=== PATIENT | male | born 1975 | race Caucasian/White ===

== ENCOUNTER 2017-05-13 22:02 | Emergency (ER) | payer OTHER ==
[~2017-05-13] VITALS: Ht 175.3 cm; Wt 77.1 kg
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
[2017-05-13 23:00] VITALS: BP 104/64
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
== END 2017-05-13 23:26 | disposition home or self-care (01) ==
LOC: EEVIPCON 22:02 → ER 22:02
DX: R51 Headache (principal); R42 Dizziness and giddiness; R41.82 Altered mental status, unspecified
CPT/HCPCS: 70450; 72125; 99284

== ENCOUNTER 2020-01-30 16:48 | Emergency (ER) | payer SELFPAY ==
[2020-01-30] MEDS ORDERED: HYDR30CR74 TP (19:43)
[2020-01-30] MEDS ORDERED: METH4TAB2 PO (19:43)
--- NOTE | 2020-01-30 19:44 | PHYS DOC ---
Past Medical History Past Medical History: Unknown Additional Past Medical Histor: DENIES Past Surgical History: Other Additional Past Surgical Histo: DENIES Smoking Status: Former Smoker Alcohol Use: Occasionally Drug Use: Marijuana General Adult EDM: Chief Complaint: SKIN PROBLEM HPI: HPI: Patient is a 44 year old male who presents with states Tuesday into Tuesday he began to break out into a itchy blistery rash all over his body. He states it did start on his arm but now has spread to bilateral arms his upper legs his abdomen and his back. He states he has been using a different detergent. States he is been using peroxide to dry it up. There is no drainage, crusting, signs of infection. He is afebrile. He states they do not hurt. Patient rates his discomfort an 8 out of 10. There is no rash to his face or in his mouth or on his neck. She denies shortness of breath, throat tightness, tongue swelling, mouth itching, face swelling, chest pain, fever, numbness or tingling, abdominal pain, nausea, vomiting, diarrhea. Review of Systems: Review of Systems: Constitutional: Denies fever or chills. [] Eyes: Denies change in visual acuity. [] HENT: Denies nasal congestion or sore throat. [] Respiratory: Denies cough or shortness of breath. [] Cardiovascular: Denies chest pain or edema. [] GI: Denies abdominal pain, nausea, vomiting, bloody stools or diarrhea. [] : Denies dysuria. [] Musculoskeletal: Denies back pain or joint pain. [] Integument: Denies body itchy rash. [] Neurologic: Denies headache, focal weakness or sensory changes. [] Endocrine: Denies polyuria or polydipsia. [] Lymphatic: Denies swollen glands. [] Psychiatric: Denies depression or anxiety. [] Heart Score: Risk Factors: Risk Factors: DM, Current or recent (<one month) smoker, HTN, HLP, family history of CAD, obesity. Risk Scores: Score 0 - 3: 2.5% MACE over next 6 weeks - Discharge Home Score 4 - 6: 20.3% MACE over next 6 weeks - Admit for Clinical Observation Score 7 - 10: 72.7% MACE over next 6 weeks - Early Invasive Strategies Allergies: Allergies: Allergies Coded Allergies Type Severity Reaction Last Updated Verified Unable to Assess 05/13/17 No Physical Exam: PE: Constitutional: Well developed, well nourished, no acute distress, non-toxic appearance. [] HENT: Normocephalic, atraumatic, bilateral external ears normal, oropharynx moist, no oral exudates, nose normal. [] Eyes: PERRLA, EOMI, conjunctiva normal, no discharge. [] Neck: Normal range of motion, no tenderness, supple, no stridor. [] Cardiovascular:Heart rate regular rhythm, no murmur [] Lungs & Thorax: Bilateral breath sounds clear to auscultation [] Abdomen: Bowel sounds normal, soft, no tenderness, no masses, no pulsatile masses. [] Skin: Warm, dry, no erythema, generalized body dermatitis rash. [] Back: No tenderness, no CVA tenderness. [] Extremities: No tenderness, no cyanosis, no clubbing, ROM intact, no edema. [] Neurologic: Alert and oriented X 3, normal motor function, normal sensory function, no focal deficits noted. [] Psychologic: Affect normal, judgement normal, mood normal. [] EKG: EKG: [] Radiology/Procedures: Radiology/Procedures: [] Course & Med Decision Making: Course & Med Decision Making Pertinent Labs and Imaging studies reviewed. (See chart for details) See HPI. Alert and oriented x4. Ambulatory with a steady gait. Speaks in full clear sentences. Uvula midline. No trismus. No swelling of the throat. He will be placed on Medrol Dosepak. I also wrote him prescription for Benadryl and hydrocortisone cream. He can follow-up with primary care provider if needed. [] Dragon Disclaimer: [place] Disclaimer: This electronic medical record was generated, in whole or in part, using a voice recognition dictation system. Departure Departure Impression: Primary Impression: Contact dermatitis Qualified Codes: L25.9 - Unspecified contact dermatitis, unspecified cause Disposition: 01 HOME, SELF-CARE Condition: STABLE Referrals: NO PCP (PCP) Patient Instructions: Contact Dermatitis Additional Instructions: Follow-up with a primary care physician. Take medication as prescribed. Scripts Hydrocortisone (Hydrocortisone) 30 Gm Cream.appl 1 ROSEY TP BID for 7 Days, #30 GM 0 Refills Prov: DAVID MARTINES SURVEYOR INSTRUMENT ASSISTANT 01/30/20 Methylprednisolone (MEDROL) 4 Mg Tab.ds.pk 1 PKG PO UD, #1 PKG Prov: DAVID MARTINES APRN 01/30/20 Justicifation of Admission Dx: Justifications for Admission: Justification of Admission Dx: N/A DAVID MARTINES APRN Jan 30, 2020 19:44
== END 2020-01-30 21:01 | disposition left against medical advice (07) ==
LOC: ER 16:48
DX: L25.9 Unspecified contact dermatitis, unspecified cause (principal); Z87.891 Personal history of nicotine dependence
CPT/HCPCS: 99283